=== PATIENT | female | born 1975 | race Caucasian/White ===

== ENCOUNTER 2017-10-04 08:56 | Inpatient (IN) | payer OTHER ==
[2017-10-04] VITALS (12 sets, daily range): BP systolic 117–147; BP diastolic 70–92; PULSE 80–90; RESP 11–20; Ht 165.1 cm; Wt 83.8 kg
[~2017-10-04] VITALS: Ht 165.1 cm; Wt 83.8 kg
[~2017-10-04 08:56] MED LIST: ASPI1TAB2 PO; CEFAZOLIN 2 GM/50 ML (PMX) 50 ML IVPB SCH; OMEP40CA6 PO; SOD CHLORIDE 0.9% 1,000 ML IV SCH
[2017-10-04] MEDS ORDERED: NOL20 PO (09:32)
[2017-10-04] MEDS ORDERED: CHOL400T10 PO (09:32)
[2017-10-04] MEDS ORDERED: ACET1TAB40 PO (09:33)
[2017-10-04] MEDS ORDERED: FOLI-49 PO (09:33)
[2017-10-04 11:39] LABS: BASOPHILS % 0.5 % (0.0-2.0); EOSINOPHILS # 0.1 10^3/ul (0.0-0.5); HEMATOCRIT 35.4 % (37.0-47.0); HEMOGLOBIN 11.8 g/dl (12.0-16.0); LYMPHOCYTES # 0.9 10^3/ul (0.8-2.9); LYMPHOCYTES % 22.4 % (15.0-51.0); MEAN CORPUSCULAR HEMOGLOBIN 30.8 pg (29.0-33.0); MEAN CORPUSCULAR HGB CONC 33.3 g/dl (32.0-37.0); MEAN CORPUSCULAR VOLUME 92.4 fl (82.0-101.0); MEAN PLATELET VOLUME 10.7 fl (7.4-10.4); MONOCYTE # 0.2 10^3/ul (0.3-0.9); MONOCYTES % 6.1 % (0.0-11.0); NEUTROPHIL # 2.7 10^3/ul (1.6-7.5); NEUTROPHILS % 68.7 % (39.0-77.0); PLATELET COUNT 182 10^3/UL (140-415); RED BLOOD COUNT 3.83 10^6/ul (4.20-5.40); RED CELL DISTRIBUTION WIDTH 12.9 % (11.5-14.5); WHITE BLOOD COUNT 3.9 10^3/ul (4.8-10.8)
[2017-10-04 11:41] LABS: INR 1.05; PROTIME 13.8 Sec (11.9-14.9); PT RATIO 1.1
[2017-10-04 11:45] LABS: HOLD TRANSMISSIONS 1
[2017-10-04 11:50] LABS: ALBUMIN 3.6 g/dl (3.3-4.9); ALBUMIN/GLOBULIN RATIO 1.5; BILIRUBIN,INDIRECT 0.4 mg/dl (0-1.1); BILIRUBIN,TOTAL 0.4 mg/dl (0.2-1.3)
[2017-10-04 11:54] LABS: CREATININE 0.69 mg/dl (0.44-1.00); POTASSIUM 4.2 mmol/L (3.5-5.1)
[2017-10-04] MEDS ORDERED: BUPIVACAINE 0.25% (MPF) 30 ML INJ ONE (14:37)
[2017-10-04] MEDS ORDERED: MIDAZOLAM 1 MG/ML 2 ML INJ ONE (14:50)
[2017-10-04] MEDS ORDERED: ONDANSETRON 4 MG INJ IV PRN (15:00)
[2017-10-04] MEDS ORDERED: FENTAnyl 50 MCG/ML VIAL IV PRN ×2 (15:00)
[2017-10-04] MEDS ORDERED: PROCHLORPERAZINE 10 MG INJ IV PRN (15:00)
[2017-10-04] MEDS ORDERED: DIPHENHYDRAMINE 50 MG INJ IV PRN (15:00)
[2017-10-04] MEDS ORDERED: CEFAZOLIN 1 GM INJ ONE (15:04)
[2017-10-04] MEDS ORDERED: LIDOCAINE 2% (SDV) 5 ML INJ ONE (15:04)
[2017-10-04] MEDS ORDERED: PROPOFOL 20 ML ONE (15:04)
[2017-10-04] MEDS ORDERED: ACETAMINOPHEN 1000MG/100ML IV 100 ML ONE (15:12)
[2017-10-04] MEDS ORDERED: EPHEDrine SULFATE 50 MG/5 ML SYG ONE (15:22)
[2017-10-04] MEDS ORDERED: ONDANSETRON 4 MG INJ ONE (15:22)
[2017-10-04] MEDS ORDERED: METOCLOPRAMIDE 10 MG INJ ONE (15:22)
[2017-10-04] MEDS ORDERED: DEXAMETHASONE 4 MG/ML 1 ML INJ ONE (15:22)
[2017-10-04] MEDS ORDERED: FAMOTIDINE 20 MG INJ ONE (15:22)
--- NOTE | 2017-10-04 16:43 | OPR ---
Date/Time of Note Date/Time of Note DATE: 10/04/17 TIME: 16:37 Operative Report Procedure Date: Oct 04, 2017 Preoperative Diagnosis breast cancer Postoperative Diagnosis breast cancer Operation/Procedure Performed 1. right simple mastectomy 20 cm incision 2. left simple mastectomy 20 cm incision 3. localized adjacent tissue transfer with the use of skin flaps 120 sq cm defect cpt code 78298, [id number], [id number] 4. 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 She underwent chemotherapy and radiation. She presented later after evaluation for genetic testing with genetic markers for breast cancer predilection. Patient requests bilateral simple mastectomies. Risks alternatives benefits and percent were discussed with patient. Patient's best understanding consents to the operation. Procedure Description Patient is taken to the OR and prepped and draped in usual sterile fashion. Surgical timeout was performed. IV antibiotics given. Elliptical surgical markings are made with a marker encompassing the nipple areolar complex for excision of the mastectomy on the right and left breast. 10 blade is used to make elliptical incision encompassing the nipple areolar complex in the right side. Dissection cautery was carried down and creating the skin flaps superiorly and inferiorly all the way down to the chest wall. The simple mastectomy was performed. Hemostasis was established. Very large tissue defect is performed. The skin flaps were further resected for good approximation and excess skin was excised using cautery. A stab incision was made in the right lower chest near the inferior area of the incision with a 15 blade. A #19 Beny drain was placed and secured with 3-0 nylon. Due to large tissue defect localized adjacent tissue transfer with these of skin flaps was performed multilayer closure with interrupted 3-0 Vicryl and absorbable skin staplers. Therapeutic subcutaneous local anesthesia injected throughout the incision site. Attention was then paid to left breast. Elliptical incision made encompassing the nipple areolar complex with a 10 blade. Superior and inferior skin flaps were created and dissection cautery was carried all the way to the chest wall. Left breast is resected. Excess skin is also excised to allow for better form and fit of the superior and inferior skin flaps. Due to tissue defect localized adjacent tissue transfer with these of skin flaps were performed. Stab incision was made in the left lower incision of the left breast. #19 Beny drain was placed and secured with a 3-0 nylon. Multilayer closure with interrupted 3-0 Vicryl the skin was closed with absorbable skin lei. Therapeutic subcutaneous local anesthesia injected throughout the incision site. Dry dressings were applied. Tevin GRUBER Oct 04, 2017 16:43
[2017-10-04] MEDS ORDERED: HYDROmorphONE 0.5 MG/0.5 ML SYG IV PRN (17:00)
[2017-10-04] MEDS: FENTAnyl 50 MCG/ML VIAL IV PRN ×2 (17:11→17:19)
[2017-10-04] MEDS: CEFAZOLIN 2 GM/50 ML (PMX) 50 ML IVPB SCH (17:17)
[2017-10-04] MEDS: SOD CHLORIDE 0.9% 1,000 ML IV SCH (18:53)
[2017-10-04] MEDS: ONDANSETRON 4 MG INJ IV PRN ×2 (18:53→23:48)
[2017-10-04] MEDS: HYDROmorphONE 0.5 MG/0.5 ML SYG IV PRN ×2 (18:54→23:48)
[2017-10-04] MEDS ORDERED: KETOROLAC 30 MG INJ IV PRN (19:00)
[2017-10-04] MEDS ORDERED: LORAZEPAM 0.5 MG TAB PO PRN (19:00)
--- NOTE | 2017-10-04 19:12 | HP ---
Date/Time of Note Date/Time of Note DATE: 10/04/17 TIME: 18:49 Assessment/Plan VTE Prophylaxis VTE Prophylaxis Intervention: anti-embolic stocking Lines/Catheters IV Catheter Type (from Nrs): Peripheral IV Central line still needed: No Urinary Cath still in place: No Assessment/Plan Problems: (1) Breast cancer screening, high risk patient Status: Acute Comment: The patient has positive BRCA-1 and BRCA-2. According to the risk of recurrent breast cancer is very high on her ,she decided to go for bilateral mastectomy on 10/04/[address] Izquierdo She is POD #1 . Fentanyl IV and Toradol given to control her burning sensation pain over both breast area. (2) S/P mastectomy, bilateral Status: Acute Comment: Pain management with IV fentanyl since she is allergic to morphine and Dilaudid (3) Status post right knee surgery Status: Resolved Comment: Ambulate as tolerate. (4) Obesity (BMI 30.0-34.9) Status: Chronic Comment: ambulate as much as possible. Diet and regular exercise regularly (5) Anxiety about health Status: Acute Comment: Ativan given as needed. Cont'd Hospitalization Reason: Pain management S/P bilateral mastectomy HPI/ROS Admit Date/Time Admit Date/Time Oct 04, 2017 at 08:56 Hx of Present Illness This is a 42 years old [place] lady with significant medical illness of right breast cancer stage 1 S/P right partial mastectomy and axillary bettina dissection in 2014. She has been recovery well from then. However, BRAC 1 and BRCA 2 were positive. She is high risk of recurrent breast cancer. The risk of breast cancer recurrence weigh more high and then bilateral mastectomy is recommended by her primary care physician. She denied and fever or chill. No new lump over right breast or a new lump over left breast. No cough or short of breath. No headache nor blurred vision. No chest pain short of breath on exertion. No abdominal pain. At this time ,she was sent from the her PCP ,Dr. Gato Mendoza to go for bilateral mastectomy today . ROS She is very pleasant,lying in bed comfortable. No Acute distress. No PND nor orthopnea. Constitutional: fatigue, No chills, No diaphoresis, No disoriented, No febrile, No improved, No nausea , No no complaints, No other, No poor po, No weight change Eyes: no complaints, No discharge, No other, No pain, No redness, No visual change ENT: no complaints, No bleeding, No congestion, No discharge, No dysphagia, No other, No pain, No sore throat Respiratory: no complaints, No cough, No other, No pain, No pleuritic pain, No shortness of breath, No sputum, No wheezing Cardiovascular: no complaints, No chest pain, No edema, No lightheadedness, No orthopenea, No other, No palpitations, No paroxysmal nocturnal dyspnea Gastrointestinal: no complaints, No blood, No constipation, No decreased appetite, No diarrhea, No flatus, No nausea, No other, No pain, No passing stool, No vomiting Genitourinary: no complaints, No bleeding, No discharge, No dysuria, No flank pain, No hematuria, No other Musculoskeletal: no complaints, No back pain, No bone/joint pain, No neck pain, No other, No restricted range of motion, No swelling Skin: no complaints, No bruising, No erythema, No laceration, No other, No pruritis, No rash, No skin lesions Neurologic: no complaints, No confusion, No dizziness, No focal-weakness, No headache, No other, No seizure, No syncope Endocrine: no complaints, No dry skin, No other, No polydypsia, No polyuria, No temp intolerance, No weight change Lymphatic: No adenopathy, No lymphadema, No no complaints, No other, No tender nodes Psychological: anxiety, No confusion, No depression, No nl mood/affect, No no complaints, No other, No suicidal PMH/Family/Social Past Medical History Medical History: cancer (right breast cancer) Past Surgical History Past Surgical Hx: other (right partial mastectomy and axillary bettina dissection [place] [address] Izquierdo. Right knee surgery in 1999 and 2000.) Family History Significant Family History: no pertinent family hx Social History Alcohol Use: none Smoking Status: Former smoker Drug Use: none Exam/Review of Systems Vital Signs Vitals Vital Signs Date Time Temp Pulse Resp B/P Pulse Ox O2 Delivery O2 Flow Rate FiO2 10/04/17 17:28 82 11 141/86 98 Room Air 10/04/17 17:13 10.0 10/04/17 17:09 98.0 Exam Constitutional: alert, oriented, well developed, No distress, No frail, No non-verbal, No other Psych: nl mood/affect, No anxiety, No confusion, No depression, No no complaints, No other, No suicidal Head: atraumatic, normocephalic, No hematomas, No lacerations, No other Eyes: EOMI, PERRL, nl conjunctiva, nl lids, nl sclera, No fundi, disc, No icteric, No other ENMT: nl external ears & nose, nl lips & teeth, nl nasal mucosa & septum, No intubated, No mucosa pink and moist, No other, No tympanic membranes Neck: non-tender, supple, No bruits, No jvd, No masses, No nuchal rigidity, No other, No thyromegaly Respiratory: clear to auscultation, normal air movement, No congested cough, No crackles/rales, No diminished breath sounds, No intercostal retraction, No labored breathing, No other, No respirations, No tactile fremitus, No wheezing Cardiovascular: nl pulses, regular rate and rhythm, No S3, No S4, No bruits, No diastolic murmur, No edema, No gallop, No irregular rhythm, No jugular venous distention (JVD), No murmurs/extra sounds, No other, No rub, No systolic murmur Gastrointestinal: nl liver, spleen, non-tender, soft, No ascites, No bowel sounds, No distended, No firm, No hepatomegaly, No mass , No other, No rebound or guarding, No splenomegaly, No surgical scars, No tender Genitourinary - Female: other, No CVA tenderness Musculoskeletal: nl extremities to inspection, nl gait and stance, No joint tenderness, No muscle tone, No muscle weakness, No other, No range of motion, No spine non-tender, No swelling Extremities: normal pulses, No calf tenderness, No clubbing, No cyanosis, No edema, No other, No palpable cord, No pitting pedal edema, No tenderness Neurological: DRIVABILITY TECHNICIAN II-XII intact, nl mental status, nl speech, nl strength, No DTR's symmetric, No confused, No focal weakness, No lethargic, No numbness , No other, No reflexes, No unresponsive Skin: No diaphoresis, No ecchymosis, No laceration, No nl turgor, No other, No puncture, No rash or lesions Labs Result Diagram: 10/04/17 0935 10/04/17 0935 Medications Medications Current Medications Sodium Chloride 1,000 ml @ 75 mls/hr [id number] IV ; Start 10/04/17 at 07:00; Stop 10/04/17 at 20:19 Cefazolin Sodium/ Dextrose 50 ml @ 100 mls/hr Q8H IVPB Last administered on t 17:17; Admin Dose 100 MLS/HR; Start 10/04/17 at 17:00; Stop 10/05/17 at 16:59 Sodium Chloride (NS) 1,000 ml @ 100 mls/hr Q10H IV ; Start 10/04/17 at 16:33 Hydromorphone HCl (Dilaudid) 0.5 mg Q2H PRN IV PAIN LEVEL 6-10; Start 10/04/17 at 17:00 Ondansetron HCl (Zofran Inj) 4 mg Q4H PRN IV NAUSEA AND/OR VOMITING; Start 10/04/17 at 17:00 Cholecalciferol (Vitamin D) 400 units DAILY PO ; Start 10/05/17 at 09:00 Folic Acid (Folic Acid) 1 mg DAILY PO ; Start 10/05/17 at 09:00 Tamoxifen Citrate (Nolvadex) 20 mg DAILY PO ; Start 10/05/17 at 09:00 Ketorolac Tromethamine (Toradol) 30 mg Q6H PRN IV PAIN; Start 10/04/17 at 19:00 ; Stop 10/07/17 at 18:59; Status JAZMYNE HART MD Oct 04, 2017 19:02
[2017-10-04 19:18] LABS: ABNORMAL IP MESSAGE 1; BASOPHILS % 0.3 % (0.0-2.0); EOSINOPHILS % 0.2 % (0.0-7.0); HEMATOCRIT 36.1 % (37.0-47.0); LYMPHOCYTES # 0.5 10^3/ul (0.8-2.9); LYMPHOCYTES % 7.6 % (15.0-51.0); MEAN CORPUSCULAR HEMOGLOBIN 30.6 pg (29.0-33.0); MEAN CORPUSCULAR HGB CONC 33.2 g/dl (32.0-37.0); MEAN CORPUSCULAR VOLUME 92.1 fl (82.0-101.0); MEAN PLATELET VOLUME 9.9 fl (7.4-10.4); MONOCYTE # 0.1 10^3/ul (0.3-0.9); MONOCYTES % 1.5 % (0.0-11.0); NEUTROPHIL # 5.3 10^3/ul (1.6-7.5); NEUTROPHILS % 90.2 % (39.0-77.0); PLATELET COUNT 166 10^3/UL (140-415); RED BLOOD COUNT 3.92 10^6/ul (4.20-5.40); RED CELL DISTRIBUTION WIDTH 12.9 % (11.5-14.5); WHITE BLOOD COUNT 5.9 10^3/ul (4.8-10.8)
[2017-10-04 19:19] LABS: POSITIVE DIFF @See below
--- NOTE | 2017-10-04 19:31 | PN ---
Date/Time of Note Date/Time of Note DATE: 10/04/17 TIME: 19:23 Assessment/Plan VTE Prophylaxis VTE Prophylaxis Intervention: ambulation, anti-embolic stocking Lines/Catheters IV Catheter Type (from Nrs): Peripheral IV Central line still needed: No Urinary Cath still in place: No Assessment/Plan Problems: (1) Breast cancer screening, high risk patient Status: Acute Comment: She is high risk of recurrent cancer due to positive BRAC-1 and BRCA - 2 positive. S/P Bilateral mastectomy . Pain management with fentanyl IV and IV Toradol given to control her pain. (2) S/P mastectomy, bilateral Status: Acute (3) Obesity (BMI 30.0-34.9) Status: Chronic (4) Anxiety about health Status: Acute (5) Recurrent cancer of right breast Subjective 24 Hr Interval Summary Free Text/Dictation She has had burning sensation over the surgical area. The pain was 8/10 in intensity. The pain was not improved by IV fentanyl given at recovery room. No fever nor chill. No cough or short of breath. No PND nor orthopnea. No abdominal pain nor nausea nor vomiting. No urgency or frequency. No blood in stool. no weight loss or loss of appetite. Constitutional: improved, no complaints Eyes: No discharge, No no complaints, No other, No pain, No redness, No visual change ENT: No bleeding, No congestion, No discharge, No dysphagia, No no complaints, No other, No pain, No sore throat Respiratory: No cough, No no complaints, No other, No pain, No pleuritic pain, No shortness of breath, No sputum, No wheezing Cardiovascular: No chest pain, No edema, No lightheadedness, No no complaints, No orthopenea, No other, No palpitations, No paroxysmal nocturnal dyspnea Gastrointestinal: No blood, No constipation, No decreased appetite, No diarrhea , No flatus, No nausea, No no complaints, No other, No pain, No passing stool, No vomiting Genitourinary: No bleeding, No discharge, No dysuria, No flank pain, No hematuria, No no complaints, No other Musculoskeletal: No back pain, No bone/joint pain, No neck pain, No no complaints, No other, No restricted range of motion, No swelling Skin: No bruising, No erythema, No laceration, No no complaints, No other, No pruritis, No rash, No skin lesions Neurologic: No confusion, No dizziness, No focal-weakness, No headache, No no complaints, No other, No seizure, No syncope Endocrine: No dry skin, No no complaints, No other, No polydypsia, No polyuria , No temp intolerance Lymphatic: No adenopathy, No lymphadema, No no complaints, No other, No tender nodes Psychological: No anxiety, No confusion, No depression, No nl mood/affect, No no complaints, No other, No suicidal Exam/Review of Systems Vital Signs Vitals Vital Signs Date Time Temp Pulse Resp B/P Pulse Ox O2 Delivery O2 Flow Rate FiO2 10/04/17 17:28 82 11 141/86 98 Room Air 10/04/17 17:13 10.0 10/04/17 17:09 98.0 Exam Constitutional: alert, oriented, No distress, No frail, No non-verbal, No obese, No other, No well developed Psych: nl mood/affect, No anxiety, No confusion, No depression, No no complaints, No other, No suicidal Head: atraumatic, normocephalic, No hematomas, No lacerations, No other Eyes: EOMI, nl conjunctiva, nl lids, No PERRL, No fundi, disc, No icteric, No nl sclera, No other ENMT: nl external ears & nose, No intubated, No mucosa pink and moist, No nl lips & teeth, No nl nasal mucosa & septum, No other, No tympanic membranes Neck: non-tender, supple, No bruits, No jvd, No masses, No nuchal rigidity, No other, No thyromegaly Respiratory: clear to auscultation, normal air movement, No congested cough, No crackles/rales, No diminished breath sounds, No intercostal retraction, No labored breathing, No other, No respirations, No tactile fremitus, No wheezing Cardiovascular: nl pulses, regular rate and rhythm, No S3, No S4, No bruits, No diastolic murmur, No edema, No gallop, No irregular rhythm, No jugular venous distention (JVD), No murmurs/extra sounds, No other, No rub, No systolic murmur Gastrointestinal: nl liver, spleen, non-tender, soft, No ascites, No bowel sounds, No distended, No firm, No hepatomegaly, No mass , No other, No rebound or guarding, No splenomegaly, No surgical scars, No tender Musculoskeletal: nl extremities to inspection, nl gait and stance, No joint tenderness, No muscle tone, No muscle weakness, No other, No range of motion, No spine non-tender, No swelling Extremities: normal pulses, No calf tenderness, No clubbing, No cyanosis, No edema, No other, No palpable cord, No pitting pedal edema, No tenderness Neurological: [place] II-XII intact, nl mental status, nl strength Skin: nl turgor, No diaphoresis, No ecchymosis, No laceration, No other, No puncture, No rash or lesions Lymph: nl lymph nodes Results Result Diagram: 10/04/17 1900 10/04/17 0935 Results 24 hrs Laboratory Tests Test 10/04/17 09:35 10/04/17 19:00 White Blood Count 3.9 #L 5.9 # Red Blood Count 3.83 L 3.92 L Hemoglobin 11.8 L 12.0 Hematocrit 35.4 L 36.1 L Mean Corpuscular Volume 92.4 92.1 Mean Corpuscular Hemoglobin 30.8 30.6 Mean Corpuscular Hemoglobin Concent 33.3 33.2 Red Cell Distribution Width 12.9 12.9 Platelet Count 182 166 Mean Platelet Volume 10.7 H 9.9 Neutrophils % 68.7 90.2 H Lymphocytes % 22.4 7.6 L Monocytes % 6.1 1.5 Eosinophils % 2.0 0.2 Basophils % 0.5 0.3 Nucleated Red Blood Cells % 0.0 0.0 Neutrophils # 2.7 5.3 Lymphocytes # 0.9 0.5 L Monocytes # 0.2 L 0.1 L Eosinophils # 0.1 0.0 Basophils # 0.0 0.0 Nucleated Red Blood Cells # 0.0 0.0 CBC Results Faxed/Phoned 1 *H Prothrombin Time 13.8 Prothrombin Time Ratio 1.1 INR International Normalized Ratio 1.05 Activated Partial Thromboplast Time 31.0 Sodium Level 142 Potassium Level 4.2 Chloride Level 108 Carbon Dioxide Level 28 Anion Gap 10 Blood Urea Nitrogen 12 Creatinine 0.69 Glucose Level 92 Calcium Level 9.0 Total Bilirubin 0.4 Direct Bilirubin 0.00 Indirect Bilirubin 0.4 Aspartate Amino Transf (AST/SGOT) 20 Alanine Aminotransferase (ALT/SGPT) 33 Alkaline Phosphatase 39 L Total Protein 6.0 L Albumin 3.6 Globulin 2.40 Albumin/Globulin Ratio 1.50 Medications Medications Current Medications Sodium Chloride 1,000 ml @ 75 mls/hr [id number] IV ; Start 10/04/17 at 07:00; Stop 10/04/17 at 20:19 Cefazolin Sodium/ Dextrose 50 ml @ 100 mls/hr Q8H IVPB Last administered on 17:17; Admin Dose 100 MLS/HR; Start 10/04/17 at 17:00; Stop 10/05/17 at 16:59 Sodium Chloride (NS) 1,000 ml @ 100 mls/hr Q10H IV Last administered on 18:53; Admin Dose 100 MLS/HR; Start 10/04/17 at 16:33 Hydromorphone HCl (Dilaudid) 0.5 mg Q2H PRN IV PAIN LEVEL 6-10 Last administered on 10/04/17 18:54; Admin Dose 0.5 MG; Start 10/04/17 at 17:00 Ondansetron HCl (Zofran Inj) 4 mg Q4H PRN IV NAUSEA AND/OR VOMITING Last administered on 10/04/17 18:53; Admin Dose 4 MG; Start 10/04/17 at 17:00 Cholecalciferol (Vitamin D) 400 units DAILY PO ; Start 10/05/17 at 09:00 Folic Acid (Folic Acid) 1 mg DAILY PO ; Start 10/05/17 at 09:00 Tamoxifen Citrate (Nolvadex) 20 mg DAILY PO ; Start 10/05/17 at 09:00 Ketorolac Tromethamine (Toradol) 30 mg Q6H PRN IV PAIN; Start 10/04/17 at 19:00 ; Stop 10/07/17 at 18:59 Zolpidem Tartrate (Ambien) 10 mg HS PRN PO INSOMNIA; Start 10/04/17 at 21:00 Lorazepam (Ativan) 0.5 mg Q8H PRN PO ANXIETY; Start 10/04/17 at 19:00 JAZMYNE LOW MD Oct 04, 2017 19:31
[2017-10-04 19:38] LABS: ALBUMIN 3.7 g/dl (3.3-4.9); ALBUMIN/GLOBULIN RATIO 1.37; BILIRUBIN,INDIRECT 0.3 mg/dl (0-1.1); BILIRUBIN,TOTAL 0.3 mg/dl (0.2-1.3); CALCIUM 8.9 mg/dl (8.4-10.2); CREATININE 0.71 mg/dl (0.44-1.00); TOTAL PROTEIN 6.4 g/dl (6.1-8.1)
[2017-10-04] MEDS ORDERED: ZOLPIDEM 5 MG TAB PO PRN (21:00)
[2017-10-05 00:15] VITALS: BP 116/63; RESP 20
[2017-10-05] MEDS: CEFAZOLIN 2 GM/50 ML (PMX) 50 ML IVPB SCH ×2 (01:32→08:31)
[2017-10-05] MEDS: SOD CHLORIDE 0.9% 1,000 ML IV SCH ×3 (02:33→22:33)
[2017-10-05 05:46] LABS: BASOPHILS % 0.1 % (0.0-2.0); HEMATOCRIT 34.2 % (37.0-47.0); HEMOGLOBIN 11.3 g/dl (12.0-16.0); LYMPHOCYTES # 0.8 10^3/ul (0.8-2.9); LYMPHOCYTES % 9.1 % (15.0-51.0); MEAN CORPUSCULAR HEMOGLOBIN 30.6 pg (29.0-33.0); MEAN CORPUSCULAR VOLUME 92.7 fl (82.0-101.0); MEAN PLATELET VOLUME 10.4 fl (7.4-10.4); MONOCYTE # 0.4 10^3/ul (0.3-0.9); MONOCYTES % 4.6 % (0.0-11.0); NEUTROPHIL # 7.5 10^3/ul (1.6-7.5); NEUTROPHILS % 85.9 % (39.0-77.0); PLATELET COUNT 189 10^3/UL (140-415); RED BLOOD COUNT 3.69 10^6/ul (4.20-5.40); RED CELL DISTRIBUTION WIDTH 12.6 % (11.5-14.5); WHITE BLOOD COUNT 8.8 10^3/ul (4.8-10.8)
[2017-10-05 06:15] LABS: ALBUMIN 3.1 g/dl (3.3-4.9); ALBUMIN/GLOBULIN RATIO 1.29; BILIRUBIN,INDIRECT 0.2 mg/dl (0-1.1); BILIRUBIN,TOTAL 0.2 mg/dl (0.2-1.3); CALCIUM 8.6 mg/dl (8.4-10.2); CREATININE 0.68 mg/dl (0.44-1.00); POTASSIUM 4.1 mmol/L (3.5-5.1); TOTAL PROTEIN 5.5 g/dl (6.1-8.1)
[2017-10-05 08:09] VITALS: BP 110/80; RESP 18
[2017-10-05] MEDS: CHOLECALCIFEROL 400 UNITS TAB PO SCH (08:31)
[2017-10-05] MEDS: FOLIC ACID 1 MG TAB PO SCH (08:31)
[2017-10-05] MEDS: TAMOXIFEN 10 MG TAB PO SCH (08:35)
--- NOTE | 2017-10-05 10:59 | PN ---
Date/Time of Note Date/Time of Note DATE: 10/05/17 TIME: 10:45 Assessment/Plan VTE Prophylaxis VTE Prophylaxis Intervention: ambulation, anti-embolic stocking Lines/Catheters IV Catheter Type (from Nrsg): Peripheral IV Urinary Cath still in place: No Assessment/Plan Problems: (1) Chest pain on breathing Status: Acute Comment: S/P bilateral mastectomy The pain has been controlled b y IV Toradol /IV Dilaudid ;IV pain meds to be continued. Tylenol #3 given for moderate pain as needed Q 6 hrs. Neurontin may be added i to control nerve pain . (2) S/P mastectomy, bilateral Status: Acute Comment: She is pod #[address] Izquierdo is following up with her after surgery. (3) Anxiety about health Status: Acute Comment: Ativan to be continued as needed. (4) Obesity (BMI 30.0-34.9) Status: Chronic Comment: Diet controlled with low cholesterol . Regularly exercise and ambulate as much as possible (5) Breast cancer screening, high risk patient Status: Resolved Comment: Mammogram follow up as an outpatient with her PCP. (6) Osteopenia due to cancer therapy Status: Chronic Comment: Calciferol resumed Fall precaution (7) Recurrent cancer of right breast Status: Acute Comment: Tamoxifen resumed. Subjective 24 Hr Interval Summary Free Text/Dictation She is doing better today. No fever or chill. The pain over surgical area is improved. The pain is controlled by IV Dilaudid and Toradol . She is not allergic to IV Dilaudid . Denied productive cough . No diarrhea . She has not had a bowel movement since . No headache nor blurred vision. She denied dizziness or lightheadedness. No urgency or frequency. No blood in urine . There is some blood clot over rt sided drain but no clotted from left sided drain Constitutional: improved, No chills, No diaphoresis, No disoriented, No febrile, No no complaints, No other, No poor po, No requiring IVF, No requiring O2 Eyes: No discharge, No no complaints, No other, No pain, No redness, No visual change ENT: No bleeding, No congestion, No discharge, No dysphagia, No no complaints, No other, No pain, No sore throat Respiratory: No cough, No no complaints, No other, No pain, No pleuritic pain, No shortness of breath, No sputum, No wheezing Cardiovascular: No chest pain, No edema, No lightheadedness, No no complaints, No orthopenea, No other, No palpitations, No paroxysmal nocturnal dyspnea Gastrointestinal: No blood, No constipation, No decreased appetite, No diarrhea , No flatus, No nausea, No no complaints, No other, No pain, No passing stool, No vomiting Genitourinary: No bleeding, No discharge, No dysuria, No flank pain, No hematuria, No no complaints, No other Musculoskeletal: No back pain, No bone/joint pain, No neck pain, No no complaints, No other, No restricted range of motion, No swelling Skin: other (burniong sensation over surgical area was controlled by IV pain medication) Neurologic: No confusion, No dizziness, No focal-weakness, No headache, No no complaints, No other, No seizure, No syncope Endocrine: No dry skin, No no complaints, No other, No polydypsia, No polyuria , No temp intolerance Lymphatic: No adenopathy, No lymphadema, No no complaints, No other, No tender nodes Psychological: No anxiety, No confusion, No depression, No nl mood/affect, No no complaints, No other, No suicidal Immunologic: No immunodeficiency, No no complaints, No other, No pruritis, No rhinitis, No urticaria Exam/Review of Systems Vital Signs Vitals Vital Signs Date Time Temp Pulse Resp B/P Pulse Ox O2 Delivery O2 Flow Rate FiO2 10/05/17 08:09 98.0 80 18 110/80 99 10/04/17 19:00 Room Air 10/04/17 17:13 10.0 Intake and Output 10/04/17 10/04/17 10/05/17 14:59 22:59 06:59 Intake Total 1300 ml 1600 ml Output Total 120 ml 1760 ml Balance 1180 ml -160 ml Results Result Diagram: 10/05/17 0500 10/05/17 0500 Results 24 hrs Laboratory Tests Test 10/04/17 19:00 10/05/17 05:00 White Blood Count 5.9 # 8.8 # Red Blood Count 3.92 L 3.69 L Hemoglobin 12.0 11.3 L Hematocrit 36.1 L 34.2 L Mean Corpuscular Volume 92.1 92.7 Mean Corpuscular Hemoglobin 30.6 30.6 Mean Corpuscular Hemoglobin Concent 33.2 33.0 Red Cell Distribution Width 12.9 12.6 Platelet Count 166 189 Mean Platelet Volume 9.9 10.4 Neutrophils % 90.2 H 85.9 H Lymphocytes % 7.6 L 9.1 L Monocytes % 1.5 4.6 Eosinophils % 0.2 0.0 Basophils % 0.3 0.1 Nucleated Red Blood Cells % 0.0 0.0 Neutrophils # 5.3 7.5 Lymphocytes # 0.5 L 0.8 Monocytes # 0.1 L 0.4 Eosinophils # 0.0 0.0 Basophils # 0.0 0.0 Nucleated Red Blood Cells # 0.0 0.0 Sodium Level 144 143 Potassium Level 4.0 4.1 Chloride Level 108 108 Carbon Dioxide Level 26 27 Anion Gap 14 12 Blood Urea Nitrogen 11 8 Creatinine 0.71 0.68 Glucose Level 116 107 Calcium Level 8.9 8.6 Total Bilirubin 0.3 0.2 Direct Bilirubin 0.00 0.00 Indirect Bilirubin 0.3 0.2 Aspartate Amino Transf (AST/SGOT) 18 13 L Alanine Aminotransferase (ALT/SGPT) 38 31 Alkaline Phosphatase 44 38 L Total Protein 6.4 5.5 L Albumin 3.7 3.1 L Globulin 2.70 2.40 Albumin/Globulin Ratio 1.37 1.29 Medications Medications Current Medications Cefazolin Sodium/ Dextrose 50 ml @ 100 mls/hr Q8H IVPB Last administered on 08:31; Admin Dose 100 MLS/HR; Start 10/04/17 at 17:00; Stop 10/05/17 at 16:59 Sodium Chloride (NS) 1,000 ml @ 100 mls/hr Q10H IV Last administered on 05:32; Admin Dose 100 MLS/HR; Start 10/04/17 at 16:33 Hydromorphone HCl (Dilaudid) 0.5 mg Q2H PRN IV PAIN LEVEL 6-10 Last administered on 10/04/17 23:48; Admin Dose 0.5 MG; Start 10/04/17 at 17:00 Ondansetron HCl (Zofran Inj) 4 mg Q4H PRN IV NAUSEA AND/OR VOMITING Last administered on 10/04/17 23:48; Admin Dose 4 MG; Start 10/04/17 at 17:00 Cholecalciferol (Vitamin D) 400 units DAILY PO Last administered on 10/05/17 08:31; Admin Dose 400 UNITS; Start 10/05/17 at 09:00 Folic Acid (Folic Acid) 1 mg DAILY PO Last administered on 10/05/17 08:31; Admin Dose 1 MG; Start 10/05/17 at 09:00 Tamoxifen Citrate (Nolvadex) 20 mg DAILY PO Last administered on 10/05/17 08: 35; Admin Dose 20 MG; Start 10/05/17 at 09:00 Ketorolac Tromethamine (Toradol) 30 mg Q6H PRN IV PAIN; Start 10/04/17 at 19:00 ; Stop 10/07/17 at 18:59 Zolpidem Tartrate (Ambien) 10 mg HS PRN PO INSOMNIA; Start 10/04/17 at 21:00 Lorazepam (Ativan) 0.5 mg Q8H PRN PO ANXIETY; Start 10/04/17 at 19:00 Acetaminophen/ Codeine Phosphate (Tylenol No.3) 1 tab Q6H PRN PO PAIN LEVEL 1-5 ; Start 10/05/17 at 11:00 JAZMYNE LOW MD Oct 05, 2017 10:57
[2017-10-05] MEDS ORDERED: SENNA/DOCUSATE NA (8.6MG/50MG) TAB PO PRN (11:00)
[2017-10-05] MEDS ORDERED: ACETAMINOPHEN/CODEINE #3 TAB PO PRN (11:00)
[2017-10-05] MEDS ORDERED: MAGNESIUM HYDROXIDE 30ML CUP PO PRN (11:00)
[2017-10-05] MEDS: ACETAMINOPHEN/CODEINE #3 TAB PO PRN (12:02)
[2017-10-05] MEDS: GABAPENTIN 300 MG CAP PO SCH ×2 (14:03→20:36)
--- NOTE | 2017-10-05 15:45 | PN ---
DATE: 10/05/2017 CHIEF COMPLAINT: Postop day #1 for bilateral mastectomy, prophylactic. SUBJECTIVE: Complaining of bilateral chest pain and difficulty raising her arms and tightness of th e dressing. OBJECTIVE: GENERAL: Alert, awake, oriented x3. VITAL SIGNS: Temperature 98.3, heart rate 89, respirations 20, blood pressure 116/63, saturation 96 % on room air. LABORATORY DATA: WBC 8800, hemoglobin 11.3. Sodium, potassium, BUN, creatinine within normal limit s. DRAINAGE: Patient has 2 Beny drains, total drainage since operation is about 120 mL; it is bloody in color. PHYSICAL EXAMINATION: HEART: Regular. LUNGS: Clear. The biopsy dressing is tight around the chest wall, so the nurses are going to open it and rewrap it again. The drainage in the bag is bloody. ASSESSMENT: A 42-year-old female status post bilateral mastectomy because of BRCA positive breast c ancer. Patient is relatively stable except that the pain is a little bit too much and also dressing is too tight and the drainage is bloody in nature. Therefore, we are going to keep the patient at least 1 more day. We will reevaluate the patient tomorrow. The nurses are going to reopen the dres sing and rewrap the Jam bandage again. Dictated By: HANG LEWIS MD PS/NTS Conf#: [id number] DID#: [id number] CC: CORA CRUZ MD;*EndCC*
[2017-10-05 19:56] VITALS: BP 122/77; RESP 22
[2017-10-06 02:00] VITALS: BP 118/74; PULSE 80; RESP 17
[2017-10-06 07:34] VITALS: BP 117/72; RESP 20
[2017-10-06] MEDS: SOD CHLORIDE 0.9% 1,000 ML IV SCH (08:33)
--- NOTE | 2017-10-06 09:10 | PDOCDIS ---
Discharge Instructions DIAGNOSIS Discharge Diagnosis 1.Right breast cancer S/P right partial mastectomy 2.High risk of recurrent breast cancer due to positive BRCA1/2 3.Neuropathic pain over surgical area. CONDITION Patient Condition: Fair HOME CARE INSTRUCTIONS: Diet Instructions: RegularSpecial Diet: Regular diet ACTIVITY: Activity Restrictions: Slowly Increase Activity Bathing Restrictions: per Dr. Izquierdo FOLLOW UP/APPOINTMENTS Follow-up Plan Follow up with Dr. Izquierdo per his recommendation Follow up with her primary care physician in 1 week SCHOOL/WORK RELEASE May return to School/Work with: No Restrictions JAZMYNE LOW MD Oct 06, 2017 09:10
[2017-10-06] MEDS ORDERED: ACET1TAB40 PO (09:15)
[2017-10-06] MEDS ORDERED: GABA300C16 PO (09:15)
[2017-10-06] MEDS: GABAPENTIN 300 MG CAP PO SCH ×2 (09:25→12:44)
[2017-10-06] MEDS: FOLIC ACID 1 MG TAB PO SCH (09:25)
[2017-10-06] MEDS: CHOLECALCIFEROL 400 UNITS TAB PO SCH (09:25)
[2017-10-06] MEDS: TAMOXIFEN 10 MG TAB PO SCH (09:30)
--- NOTE | 2017-10-06 09:32 | DS ---
Date/Time of Note Date/Time of Note DATE: 10/06/17 TIME: 09:23 Discharge Summary Admission/Discharge Info Admit Date/Time Oct 04, 2017 at 08:56 Discharge Date/Time 10/06/2017 Discharge Diagnosis 1.Right breast cancer S/P right partial mastectomy 2.High risk of recurrent breast cancer due to positive BRCA1/2 3.Neuropathic pain over surgical area. Patient Condition: Good Consults Dr. Maryana Izquierdo Procedures Bilateral mastectomy Hx of Present Illness This is a 42 years old [place] lady with significant medical illness of right breast cancer stage 1 S/P right partial mastectomy and axillary bettina dissection in 2014. She has been recovery well from then. However, BRAC 1 and BRCA 2 were positive. She is high risk of recurrent breast cancer. The risk of breast cancer recurrence weigh more high and then bilateral mastectomy is recommended by her primary care physician. She denied and fever or chill. No new lump over right breast or a new lump over left breast. No cough or short of breath. No headache nor blurred vision. No chest pain short of breath on exertion. No abdominal pain. At this time ,she was sent from the her PCP ,Dr. Gato Mendoza to go for bilateral mastectomy ton 10/05/2017. Hospital Course This is a 42 years old [place] lady with significant medical illness of right breast cancer stage 1 S/P right partial mastectomy and axillary bettina dissection in 2014. She has been recovery well from then. However, BRAC 1 and BRCA 2 were positive. She is high risk of recurrent breast cancer. The risk of breast cancer recurrence weigh more high and then bilateral mastectomy is recommended by her primary care physician. She denied and fever or chill. No new lump over right breast or a new lump over left breast. No cough or short of breath. No headache nor blurred vision. No chest pain short of breath on exertion. No abdominal pain. At this time ,she was sent from the her PCP ,Dr. Gato Mendoza to go for bilateral mastectomy on 10/05/2017 successfully. On the POD #1,she developed acute and excruciating neuropathy pain over the surgical area which was improved after untightening the bandage around the surgical area. Also ,she sated that Neurontin was helpful for her too. Her pain is significantly improved today. She is medically stable to be discharged home today . Regular diet resumed. Follow wit Dr. Maryana Izquierdo and her primary care physician in 1-2 week. Vital Signs Date Time Temp Pulse Resp B/P Pulse Ox O2 Delivery O2 Flow Rate FiO2 10/06/17 07:34 98.6 80 20 117/72 96 10/06/17 02:00 Room Air 10/04/17 17:13 10.0 Const: She is alert and oriented to time,place and person. No acute dyspnea . No pallor nor jaundice. Head: Normocephalic and atraumatic head. Eyes: Normal Conjunctiva ENT: Normal External Ears, Nose and Mouth. Neck: Full range of motion. No meningismus. Resp: Clear to auscultation bilaterally Cardio: Regular rate and rhythm, no murmurs Abd: Soft, non tender, non distended. Normal bowel sounds. Skin: No petechiae or rashes No active bleeding from surgical wound. Back: No midline or flank tenderness. Ext: No cyanosis, or edema. Neuro: Awake and alert. Psych: Normal Mood and Affect. Home Meds Active Scripts Gabapentin* (Gabapentin*) 300 Mg Capsule, 300 MG PO TID for 30 Days, #90 CAP Prov:JAZMYNE LOW MD 10/06/17 Reported Medications Acetaminophen with Codeine (Acetaminophen-Cod #3 Tablet) 1 Each Tablet, 1 TAB PO DAILY Y for PAIN, #7 TAB 10/04/17 Folic Acid* (Folic Acid*) 1 Mg Tablet, 1 MG PO DAILY, TAB 10/04/17 Cholecalciferol* (Vitamin D*) 400 Unit Tablet, 400 UNIT PO DAILY, TAB 10/04/17 Tamoxifen Citrate* (Tamoxifen Citrate*) 20 Mg Tab, 20 MG PO DAILY, #30 10/04/17 Discontinued Reported Medications Mukgywp-Wyqdkbmzhfnlr-Croqxzdz* (Excedrin Extra Strength*) 250-250-65 Mg Tablet , 1 TAB PO Q6H Y for PAIN, TAB 12/02/15 Omeprazole* (Omeprazole*) 40 Mg Capsule.dr 40 MG PO DAILY, #30 CAP 12/02/15 Follow-up Plan Follow up with Dr. Izquierdo per his recommendation Follow up with her primary care physician in 1 week Primary Care Provider Time spent on discharge: > 30 minutes Copies To: CC: Tevin IZQUIERDO NARUCHON MD Oct 06, 2017 09:32
--- NOTE | 2017-10-06 12:03 | DS ---
Date/Time of Note Date/Time of Note DATE: 10/06/17 TIME: 12:02 Discharge Summary Admission/Discharge Info Admit Date/Time Oct 04, 2017 at 08:56 Discharge Date/Time 10/06/17 Discharge Diagnosis 1.Right breast cancer S/P right partial mastectomy 2.High risk of recurrent breast cancer due to positive BRCA1/2 3.Neuropathic pain over surgical area. Consults surgery Procedures mastectomy Hx of Present Illness Patient with breast cancer comes in for partial mastectomy Hospital Course Patient with breast cancer comes in for partial mastectomy. Patient tolerated the procedure and when deemed stable, patient was sent home. Home Meds Active Scripts Gabapentin* (Gabapentin*) 300 Mg Capsule, 300 MG PO TID for 30 Days, #90 CAP Prov:JAZMYNE LOW MD 10/06/17 Reported Medications Acetaminophen with Codeine (Acetaminophen-Cod #3 Tablet) 1 Each Tablet, 1 TAB PO DAILY Y for PAIN, #7 TAB 10/04/17 Folic Acid* (Folic Acid*) 1 Mg Tablet, 1 MG PO DAILY, TAB 10/04/17 Cholecalciferol* (Vitamin D*) 400 Unit Tablet, 400 UNIT PO DAILY, TAB 10/04/17 Tamoxifen Citrate* (Tamoxifen Citrate*) 20 Mg Tab, 20 MG PO DAILY, #30 10/04/17 Discontinued Reported Medications Idideap-Dpselrrwpwxfi-Stodbaid* (Excedrin Extra Strength*) 250-250-65 Mg Tablet , 1 TAB PO Q6H Y for PAIN, TAB 12/02/15 Omeprazole* (Omeprazole*) 40 Mg Capsule., 40 MG PO DAILY, #30 CAP 12/02/15 Follow-up Plan Follow up with Dr. Izquierdo per his recommendation Follow up with her primary care physician in 1 week Primary Care Provider LUIS LAWSON Oct 06, 2017 12:03
[2017-10-06] MEDS: ACETAMINOPHEN/CODEINE #3 TAB PO PRN (13:33)
--- NOTE | 2017-10-06 14:27 | PN ---
DATE: 10/06/2017 SUBJECTIVE: Status post bilateral mastectomy. Feels much better today. OBJECTIVE: VITAL SIGNS: Temperature 98.6, heart rate 80, respirations 20, blood pressure 107/72, saturation 96%. Two Sherwin-Ramirez in place. The drainage has been 30 mL and 35 mL in the past 24 hours, total 65 mL serosanguineous. The LEISA bandage has been rewrapped. It is not too tight anymore. The color of t he drainage is serosanguineous. HEART: Regular. ABDOMEN: Soft. ASSESSMENT: A 42-year-old female with bilateral mastectomy because of the positive BRCA1 gene mutat ion. PLAN: The patient is ready to be discharged home to be followed by Dr. Izquierdo in the office next week. Instructions were caring of the Sherwin-Ramirez and recording the drainage has been given to the pat ient by the nurse and by myself. Pain medication will be given. The patient will be discharged mar e today. Dictated By: HANG LEWIS MD PS/AARON Conf#: [id number] DID#: [id number] CC: CORA CURZ MD;*EndCC*
== END 2017-10-06 14:20 | disposition home or self-care (01) | DRG 585 ==
LOC: REC 08:56 → MS1 18:05
PROVIDERS: ADMIT Internal Medicine; ATTEND Surgery
PROC: 0HTV0ZZ Resection of Bilateral Breast, Open Approach (ICD-10-PCS; principal; 2017-10-04 14:00)
DX: Z40.01 Encounter for prophylactic removal of breast (principal); E66.9 Obesity, unspecified; F41.9 Anxiety disorder, unspecified; Z92.3 Personal history of irradiation; Z92.21 Personal history of antineoplastic chemotherapy; Z68.30 Body mass index [BMI] 30.0-30.9, adult; Z15.01 Genetic susceptibility to malignant neoplasm of breast; Z85.3 Personal history of malignant neoplasm of breast; M85.80 Other specified disorders of bone density and structure, unspecified site; T45.1X5A Adverse effect of antineoplastic and immunosuppressive drugs, initial encounter; Z17.0 Estrogen receptor positive status [ER+]; M79.2 Neuralgia and neuritis, unspecified
CPT/HCPCS: 80053; 84703; 85025; 85610; 85730; 88307; J0131; J0690; J1100; J1170; J2250; J2405; J2765; J3010; J7030